=== PATIENT | male | born 1980 | race Caucasian/White ===

== ENCOUNTER → 2019-06-24 | Outpatient (CLI) | payer OTHER ==
[2019-06-26 14:57] LABS: HCV Qualitative Result DETECTED (Not detected); HCV Quant Log 6.12 (<1.08)
== END | disposition home or self-care (01) ==
LOC: LABWHC1 11:09
PROVIDERS: ATTEND Physician Assistant
DX: B18.2 Chronic viral hepatitis C (principal)
CPT/HCPCS: 36415; 87522

== ENCOUNTER → 2019-07-07 | Outpatient (CLI) | payer OTHER ==
--- NOTE | 2019-07-07 13:08 | US ---
EXAMINATION TYPE: US liver DATE OF EXAM: 07/07/2019 COMPARISON: None CLINICAL HISTORY: B18.2 Chronic viral hepatitis C. Patient states no pain. NPO. EXAM MEASUREMENTS: Liver Length: 16.2 cm Gallbladder Wall: 0.2 cm Right Kidney: 10.0 x 4.9 x 4.6 cm Limited visualization due to overlying bowel gas Pancreas: Obscured by bowel gas Liver: There is heterogeneity and increased echogenicity of the hepatic parenchyma with diminished v isualization of the portal triads, limiting evaluation for underlying hepatic masses. No discrete hep atic mass is seen on today's examination. Gallbladder: wnl Evidence for sonographic Corrales's sign: neg CBD: Obscured by overlying bowel gas Right Kidney: No hydronephrosis or masses seen IMPRESSION: Heterogenous hepatic echotexture is in keeping with this patient's history of hepatitis. Although this limits evaluation for masses no hepatic mass is seen on today's exam.
== END ==
LOC: RADUSWWP 12:12
PROVIDERS: ATTEND Internal Medicine Gastroenterology
DX: B18.2 Chronic viral hepatitis C (principal)
CPT/HCPCS: 76705

== ENCOUNTER → 2020-06-14 | Day surgery (SDC) | payer OTHER ==
[2020-06-14 09:42] VITALS: RESP 18; TEMP 98.1
[2020-06-14 09:53] LABS: INR 1.1 (<1.2); Prothrombin Time 11.3 sec (9.0-12.0)
[2020-06-14 10:03] LABS: Platelet Count 97 k/uL (150-450)
[2020-06-14 11:53] VITALS: BP 112/61; PULSE 62
--- NOTE | 2020-06-14 13:38 | US ---
EXAMINATION TYPE: US biopsy liver DATE OF EXAM: 06/14/2020 HISTORY: Chronic viral hepatitis C PROCEDURE: Maximal barrier technique was utilized. After informed consent, the skin overlying a suit able path to the lobe of the liver was localized using ultrasound, the skin was prepped and draped. Ultrasound was utilized with sterile technique. Lidocaine was used for local anesthesia. A skin boby made with a scalpel. Under direct ultrasound guidance, an 18-gauge needle was advanced into the rig ht lobe of the liver and core biopsy obtained. Hemostasis was achieved. There was no immediate comp lication and patient remained in stable condition. Specimen submitted in formalin to Pathology. IMPRESSION: STATUS POST ULTRASOUND GUIDED CORE BIOPSY OF THE RIGHT LOBE OF THE LIVER, PATHOLOGY PENDPartha [place]. PERFORMED BY THE UNDERSIGNED.
== END ==
LOC: RADPROMAIN 05-09 08:46
PROVIDERS: ATTEND Internal Medicine Gastroenterology
DX: B18.2 Chronic viral hepatitis C (principal)
CPT/HCPCS: 36415; 47000; 76942; 85049; 85610; 88307; 88313